=== PATIENT | female | born 1945 | race Caucasian/White ===

== ENCOUNTER 2017-06-07 05:45 | Day surgery (SDC) | payer OTHER | END 2017-06-07 10:50 | disposition home or self-care (01) | LOC: AMB-ENDOS 05:45 | DX: D12.5 Benign neoplasm of sigmoid colon (principal); K57.30 Diverticulosis of large intestine without perforation or abscess without bleeding; K64.1 Second degree hemorrhoids ==

== ENCOUNTER 2021-01-13 05:30 | Day surgery (SDC) | payer OTHER | END 2021-01-13 09:50 | disposition home or self-care (01) | LOC: AMB-ENDOS 05:30 | PROVIDERS: ATTEND Colon & Rectal Surgery | DX: D12.4 Benign neoplasm of descending colon (principal); K64.0 First degree hemorrhoids ==